=== PATIENT | female | born 1990 ===

== ENCOUNTER 2017-03-02 16:50 | Emergency (ER) | payer OTHER ==
[2017-03-02 17:31] VITALS: O2SAT 100; BMI 26.5
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
[2017-03-02 21:05] VITALS: BP 122/67; PULSE 80; RESP 17; TEMP 98.2
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
--- NOTE | 2017-03-03 09:13 | RAD ---
PROCEDURE: Right Hand Radiographs. HISTORY: hand pain COMPARISON: None. FINDINGS: BONES: Normal. No fracture. JOINTS: Normal. No osteoarthritic changes. SOFT TISSUES: Normal. OTHER FINDINGS: None. IMPRESSION: Normal right hand radiographs.
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
== END 2017-03-02 22:57 | disposition home or self-care (01) ==
LOC: MERGE 16:50 → ED 16:50
DX: S00.83XA Contusion of other part of head, initial encounter (principal); S09.90XA Unspecified injury of head, initial encounter; S20.211A Contusion of right front wall of thorax, initial encounter; Y04.0XXA Assault by unarmed brawl or fight, initial encounter; F17.210 Nicotine dependence, cigarettes, uncomplicated; M54.2 Cervicalgia; M79.641 Pain in right hand

== ENCOUNTER 2017-03-17 15:16 | Emergency (ER) | payer OTHER ==
[2017-03-17 15:23] VITALS: BMI 25.6
[2017-03-17 15:25] VITALS: RESP 16; TEMP 97.7; O2SAT 100
[2017-03-17] MEDS ORDERED: Sodium Chloride 0.9% 1,000 ML IV STA (15:34)
[2017-03-17] MEDS ORDERED: Alum-Mag Hydrox-Simethicone Susp (30 mL) PO STA (15:34)
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
[2017-03-17 15:54] LABS: HEMATOCRIT 39.5 % (36.0-48.0); MEAN CELL VOLUME 79.5 fL (80.0-105.0); MEAN CORPUSCULAR HEMOGLOBIN 27.2 pg (25.0-35.0); MEAN CORPUSCULAR HGB CONC 34.2 g/dl (31.0-37.0); MEAN PLATELET VOLUME 10.3 fl (7.0-11.0); PLATELET COUNT 373 10^3/uL (120.0-450.0); URINE BILIRUBIN SMALL (NEGATIVE); URINE BLOOD TRACE-LYSED (NEGATIVE); URINE GLUCOSE (UA) NEGATIVE (NEGATIVE); URINE KETONE 15 mg/dL (NEGATIVE); URINE LEUKOCYTE ESTERASE NEGATIVE Leu/uL (NEGATIVE); URINE PROTEIN 100 mg/dL (<30 mg/dL); WHITE BLOOD COUNT 17.6 10^3/ul (4.5-11.0)
[2017-03-17 15:57] LABS: URINE APPEARANCE CLEAR (CLEAR); URINE COLOR YELLOW (YELLOW)
[2017-03-17 16:00] LABS: ADD MANUAL DIFF? YES
[2017-03-17 16:04] LABS: ALB/GLOB RATIO 1.4 (1.1-1.8); ALKALINE PHOSPHATASE 71 U/L (38-133); ALT/SGPT 25 U/L (7-56); AST/SGOT 35 U/L (15-39); BILIRUBIN,TOTAL 1.3 mg/dL (0.2-1.3); BLOOD UREA NITROGEN 12 mg/dL (7-21); CALCIUM 9.9 mg/dL (8.4-10.5); CARBON DIOXIDE 22 mmol/L (21-33); CHLORIDE 105 mmol/L (98-107); GFR AFRICAN-AMERICAN > 60; GLUCOSE,RANDOM 105 mg/dL (70-110); LIPASE 159 U/L (23-300); POTASSIUM 3.9 mmol/L (3.6-5.0); SODIUM 141 mmol/L (132-148); TOTAL PROTEIN 8.8 g/dL (5.8-8.3)
[2017-03-17 16:08] LABS: URINE BACTERIA FEW (NEG); URINE WBC 0 - 2 /hpf (0-6)
[2017-03-17 16:27] LABS: BASO # 0.03 K/mm3 (0.0-2.0); BASO % 0.2 % (0.0-3.0); EOS % 0.1 % (1.5-5.0); LYMPH # 0.7 (1.2-3.4); LYMPH % 4.2 % (22.0-35.0); MONO # 0.6 (0.1-0.6); MONO % 3.5 % (1.0-6.0)
[2017-03-17 16:28] LABS: BAND 0 % (0-2); EOSINOPHIL 0 % (0.0-3.0); GRAN # 16.16 (1.4-6.5); NEUTROPHIL 93 % (50.0-70.0)
[2017-03-17 16:29] LABS: PLATELET ESTIMATE NORMAL (NORMAL)
[2017-03-17 17:25] VITALS: BP 128/80; PULSE 82
== END 2017-03-17 17:33 | disposition home or self-care (01) ==
LOC: ED 15:16
DX: R19.7 Diarrhea, unspecified (principal); R11.10 Vomiting, unspecified
CPT/HCPCS: 80053; 81001; 83690; 84703; 85025; 96361; 96374; 96375; 99284; J2405; J7040